=== PATIENT | female | born 1980 | race Caucasian/White ===

== ENCOUNTER 2018-06-23 14:06 | Emergency (ER) | payer BC ==
[2018-06-23 14:24] VITALS: BP 133/77
[2018-06-23] MEDS ORDERED: Sodium Chloride 0.9% 10 ML Syringe FLUSH PRN (14:44)
--- NOTE | 2018-06-23 14:47 | EDM.PDOC ---
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 45 minutes prior to admission to the ED. Went to the bathroom and had a approximately 5 cm x 5 cm dark circular pattern blood spot to her underwear. She placed a bad into her underwear and came to the E.D. for further evaluation. She does not know if it is saturated or not. States the bleeding is abnormal for her. There is no discomfort noted. Denies any activities prior to onset that may have contributed to bleeding. Last menstrual cycle was April 16. history 3 para 2. She's had 2 C-sections. Appendix has been removed as well. She is currently taking vitamins. Denies any smoking history, alcohol use, and or recreational drug use. She does not recall her blood type. Denies any fever/chills, nausea vomiting, abdominal pain, dysuria, bleeding disorder, or any additional complaints. 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: , Other (See Below) Other E LEARNING DEVELOPER History: 2 c sections - Infectious Disease History Infectious Disease History: Reports: None - Past Surgical History GI Surgical History: Reports: Appendectomy Female Surgical History: Reports: Section Social & Family History - Family History Family Medical History: Noncontributory - Tobacco Use Smoking Status *Q: Never Smoker - Caffeine Use Caffeine Use: Reports: Soda - Recreational Drug Use Recreational Drug Use: No ED ROS GENERAL - Review of Systems Review Of Systems: See Below Constitutional: Reports: No Symptoms Respiratory: Reports: No Symptoms Cardiovascular: Reports: No Symptoms GI/Abdominal: Reports: No Symptoms : Reports: Discharge (blood). Denies: Dysuria, Flank Pain, Frequency, Hematuria, Urgency ED EXAM - Physical Exam Exam: See Below Exam Limited By: No Limitations General Appearance: Alert, WD/WN, No Apparent Distress Ears: Hearing Grossly Normal Nose: Normal Inspection Throat/Mouth: Normal Voice, No Airway Compromise Neck: Normal Inspection, Supple Respiratory/Chest: No Respiratory Distress, Lungs Clear, Normal Breath Sounds, No Accessory Muscle Use, Chest Non-Tender Cardiovascular: Normal Peripheral Pulses, Regular Rate, Rhythm, No Murmur GI/Abdominal Exam: Normal Bowel Sounds, Soft, Non-Tender, No Organomegaly, No Distention (Female) Exam: Other (Deferred) Back Exam: Normal Inspection. No: CVA Tenderness (L), CVA Tenderness (R) Extremities: Normal Inspection Neurological: Alert, Oriented, CN II-XII Intact Psychiatric: Normal Affect, Normal Mood Skin Exam: Warm, Dry, Intact, Normal Color Course - Vital Signs Last Recorded V/S: Last Vital Signs Temp 98.9 F 06/23/18 14:23 Pulse 82 06/23/18 14:23 Resp 20 06/23/18 14:23 BP 133/77 06/23/18 14:23 Pulse Ox 99 06/23/18 14:23 - Orders/Labs/Meds Orders: Active Orders 24 hr Category Date Time Status Peripheral IV Care [RC] . DIRECTED Care 06/23/18 14:44 Active CULTURE URINE [RM] Stat Lab 06/23/18 15:01 Received Peripheral IV Insertion Adult [OM.PC] Routine Oth 06/23/18 14:44 Ordered Labs: Laboratory Tests 06/23/18 06/23/18 06/23/18 Range/Units 14:55 14:55 14:55 WBC 7.63 (3.98-10.04) K/mm3 RBC 4.46 (3.98-5.22) M/mm3 Hgb 13.2 (11.2-15.7) gm/L Hct 39.6 (34.1-44.9) % MCV 88.8 (79.4-94.8) fl MCH 29.6 (25.6-32.2) pg MCHC 33.3 (32.2-35.5) g/dl RDW Std Deviation 42.4 (36.4-46.3) fL Plt Count 286 (182-369) K/mm3 MPV 9.5 (9.4-12.3) fl Neutrophils % (Manual) 66 H (40-60) % Band Neutrophils % 0 (0-10) % Lymphocytes % (Manual) 27 (20-40) % Atypical Lymphs % 0 % Monocytes % (Manual) 4 (2-10) % Eosinophils % (Manual) 3 (0.7-5.8) % Basophils % (Manual) 0 L (0.1-1.2) Platelet Estimate Adequate Plt Morphology Comment Normal RBC Morph Comment Normal PT 9.9 (9.5-12.1) SECONDS INR < 0.93 APTT 29 (24-31) SECONDS Sodium 139 (136-145) mEq/L Potassium 3.7 (3.5-5.1) mEq/L Chloride 104 (98-107) mEq/L Carbon Dioxide 25 (21-32) mEq/L Anion Gap 13.7 (5-15) BUN 10 (7-18) mg/dL Creatinine 0.8 (0.55-1.02) mg/dL Est Cr Clr Drug Dosing 75.41 mL/min Estimated GFR (MDRD) > 60 (>60) mL/min BUN/Creatinine Ratio 12.5 L (14-18) Glucose 102 (74-106) mg/dL Calcium 9.6 (8.5-10.1) mg/dL Total Bilirubin 0.2 (0.2-1.0) mg/dL AST 19 (15-37) U/L ALT 28 (14-59) U/L Alkaline Phosphatase 92 (46-116) U/L Total Protein 7.8 (6.4-8.2) g/dl Albumin 3.7 (3.4-5.0) g/dl Globulin 4.1 gm/dL Albumin/Globulin Ratio 0.9 L (1-2) HCG, Quant 4152.0 mIU/mL Urine Color (Yellow) Urine Appearance (Clear) Urine pH (5.0-8.0) Ur Specific [place] (1.005-1.030) Urine Protein (Negative) Urine Glucose (UA) (Negative) Urine Ketones (Negative) Urine Occult Blood (Negative) Urine Nitrite (Negative) Urine Bilirubin (Negative) Urine Urobilinogen (0.2-1.0) Ur Leukocyte Esterase (Negative) Urine RBC (0-5) /hpf Urine WBC (0-5) /hpf Ur Epithelial Cells (0-5) /hpf Urine Bacteria (FEW) /hpf Urine Mucus (FEW) /hpf Blood Type Gel Antibody Screen 06/23/18 06/23/18 Range/Units 14:55 15:01 WBC (3.98-10.04) K/mm3 RBC (3.98-5.22) M/mm3 Hgb (11.2-15.7) gm/L Hct (34.1-44.9) % MCV (79.4-94.8) fl MCH (25.6-32.2) pg MCHC (32.2-35.5) g/dl RDW Std Deviation (36.4-46.3) fL Plt Count (182-369) K/mm3 MPV (9.4-12.3) fl Neutrophils % (Manual) (40-60) % Band Neutrophils % (0-10) % Lymphocytes % (Manual) (20-40) % Atypical Lymphs % % Monocytes % (Manual) (2-10) % Eosinophils % (Manual) (0.7-5.8) % Basophils % (Manual) (0.1-1.2) Platelet Estimate Plt Morphology Comment RBC Morph Comment PT (9.5-12.1) SECONDS INR APTT (24-31) SECONDS Sodium (136-145) mEq/L Potassium (3.5-5.1) mEq/L Chloride (98-107) mEq/L Carbon Dioxide (21-32) mEq/L Anion Gap (5-15) BUN (7-18) mg/dL Creatinine (0.55-1.02) mg/dL Est Cr Clr Drug Dosing mL/min Estimated GFR (MDRD) (>60) mL/min BUN/Creatinine Ratio (14-18) Glucose (74-106) mg/dL Calcium (8.5-10.1) mg/dL Total Bilirubin (0.2-1.0) mg/dL AST (15-37) U/L ALT (14-59) U/L Alkaline Phosphatase (46-116) U/L Total Protein (6.4-8.2) g/dl Albumin (3.4-5.0) g/dl Globulin gm/dL Albumin/Globulin Ratio (1-2) HCG, Quant mIU/mL Urine Color Yellow (Yellow) Urine Appearance Clear (Clear) Urine pH 7.0 (5.0-8.0) Ur Specific [place] 1.015 (1.005-1.030) Urine Protein Negative (Negative) Urine Glucose (UA) Negative (Negative) Urine Ketones Negative (Negative) Urine Occult Blood 3+ H (Negative) Urine Nitrite Negative (Negative) Urine Bilirubin Negative (Negative) Urine Urobilinogen 0.2 (0.2-1.0) Ur Leukocyte Esterase Trace H (Negative) Urine RBC 0-5 (0-5) /hpf Urine WBC 5-10 H (0-5) /hpf Ur Epithelial Cells 5-10 H (0-5) /hpf Urine Bacteria Rare (FEW) /hpf Urine Mucus Not seen (FEW) /hpf Blood Type O POSITIVE Gel Antibody Screen Negative Meds: Medications Discontinued Medications Generic Name Dose Route Start Last Admin Trade Name Freq PRN Reason Stop Dose Admin Acetaminophen 975 mg 06/23/18 16:28 06/23/18 16:33 Tylenol PO 06/23/18 16:29 975 mg NOW ONE Administration Nitrofurantoin Macrocrystals 100 mg 06/23/18 16:54 06/23/18 17:05 Macrobid PO 06/23/18 16:55 100 mg ONETIME ONE Administration Sodium Chloride 10 ml 06/23/18 14:44 06/23/18 15:01 Saline Flush FLUSH 10 ml ASDIRECTED PRN Administration Keep Vein Open - Re-Assessments/Exams Free Text/Narrative Re-Assessment/Exam: Peripheral IV started. Initial labs and studies include: CBC, chem 14, hCG quantitative, coag studies, type and screen, UA, and OB transvaginal ultrasound. Per patient with providing a UA sample there was only a small 2 cm x 2 cm spot on the pad of dark blood. No clots or tissue present. She has no cramping. Labs reviewed: CBC and CMP was essentially normal. HCG quantitative was 4152. UA revealed 3+ occult blood, trace leukocyte Estrace, urine wbc's 5-10, urine epithelial cells 5-10. Appears to be contaminated. With patient being I have elected to start the patient on Macrobid 100 mg twice a day for 5 days. Urine culture has been obtained. Ultrasound impression: Single intrauterine gestational sac containing pole. No heart activity seen at this time. This may related to early gestational age although follow-up recommended in 11 days to confirm normal developing . 2 vague hyperechoic areas within the uterus of uncertain etiology, likely incidental. All labs and ultrasound results discussed with the patient. She has no complaints at this time. I am awaiting for Rh type prior to discharge. 06/23/18 17:13 I did call the lab and asked about blood type. Patient's O+. Patient will be discharged home. Discharge instructions as documented. The patient remained hemodynamically stable while under my care in the E.D. I discussed the concerning symptoms for which to returnto the E.D. with the patient/family. The patient/family verbalized understanding. All questions were answered. Departure - Departure Time of Disposition: 17:14 Disposition: Home, Self-Care 01 Condition: Good Clinical Impression: Vaginal bleeding in patient at less than 20 weeks gestation UTI (urinary tract infection) Qualifiers: Urinary tract infection type: site unspecified Hematuria presence: with hematuria Qualified Code(s): N39.0 - Urinary tract infection, site not specified - Discharge Information Prescriptions: Nitrofurantoin Monohyd/M-Cryst [Macrobid 100 mg Capsule] 100 mg PO BID #10 capsule Instructions: Vaginal Bleeding During , First Trimester, Urinary Tract Infection, Adult, [id number] Referrals: Adrienne Izaguirre MD [Primary Care Provider] - Forms: ED Department Discharge Additional Instructions: As discussed ultrasound revealed single intrauterine gestational sac. No heart activity is seen at this time. They recommended follow-up exam in 11 days to confirm normal developing . Keep appointment with Dr. Izaguirre as scheduled for July 05. In addition UA revealed you have a UTI. Treatment will be Macrobid 1 tab twice a day for 5 days. Please follow up with PCP to have urine checked 2 days after completion of antibiotics to assure resolution. Push the fluids. Utilize Tylenol as needed for any discomfort. Refrain from heavy lifting, exertional activities, and sexual intercourse. Please return back to the ED if you should develop any new or worsening symptoms. Blood type O+. - My Orders Last 24 Hours: My Active Orders 06/23/18 14:44 Peripheral IV Care [RC] . DIRECTED Peripheral IV Insertion Adult [OM.PC] Routine 06/23/18 15:01 CULTURE URINE [RM] Stat - Assessment/Plan Last 24 Hours: My Active Orders 06/23/18 14:44 Peripheral IV Care [RC] . DIRECTED Peripheral IV Insertion Adult [OM.PC] Routine 06/23/18 15:01 CULTURE URINE [RM] Stat
[2018-06-23] MEDS ORDERED: Acetaminophen 325 MG Tab PO ONE (16:28)
--- NOTE | 2018-06-23 16:34 | US ---
First trimester obstetrical ultrasound: Multiple real-time images were obtained transvaginally. Comparison: No previous study for current . Dates: Current ultrasound: [facility] 02/15/19, gestational age 6 weeks 1 day Single intrauterine gestation is seen. Amniotic fluid volume is normal. pole is seen. No subchorionic hemorrhage is identified. Vague hyperechoic areas are seen within the uterus of uncertain etiology at this time. Maternal right ovary is seen and appears unremarkable. Maternal left ovary not visualized. Measurements: [place]-rump length: 0.42 cm - 6 weeks 1 day No heart activity is seen. Impression: 1. Single intrauterine gestational sac containing pole. No heart activity is seen at this time. This may relate to early gestational age although follow-up recommended in 11 days to confirm normal developing . 2. 2 vague hyperechoic areas within the uterus of uncertain etiology, likely incidental. Diagnostic code #3
[2018-06-23] MEDS ORDERED: Nitrofurantoin Monohydrate/Macrocrystalline 100 MG Cap PO ONE (16:54)
== END 2018-06-23 17:30 | disposition home or self-care (01) ==
LOC: JD.ED 14:06
DX: O09.521 Supervision of elderly multigravida, first trimester (principal); O20.9 Hemorrhage in early pregnancy, unspecified; O23.41 Unspecified infection of urinary tract in pregnancy, first trimester; Z3A.10 10 weeks gestation of pregnancy; Z79.899 Other long term (current) drug therapy
CPT/HCPCS: 36415; 76817; 80053; 81001; 84702; 85007; 85027; 85610; 85730; 86850; 86900; 86901; 87086; 99284; A9270; J7050

== ENCOUNTER 2018-06-26 09:29 | Emergency (ER) | payer BC ==
[2018-06-26 09:39] VITALS: BP 134/81
--- NOTE | 2018-06-26 11:36 | US ---
First trimester obstetrical ultrasound: Multiple real-time images were obtained transvaginally. Comparison: Previous obstetrical ultrasound of 06/23/18. No intrauterine gestational sac is seen. Equivocal fibroid within the lower uterine segment measuring 2.9 cm. Left ovary not visualized. Right ovary is within normal limits. Small amount of free fluid is seen within the cul-de-sac believed to be incidental. No endometrial thickening is seen. Impression: 1. No intrauterine gestational sac. Equivocal uterine fibroid as noted above. 2. Small amount of free fluid believed to be incidental. Diagnostic code #2
--- NOTE | 2018-06-26 12:20 | EDM.PDOC ---
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 She is about 10 weeks gestation with a LNMP of April 12. She was seen here on Monday by Jm Colby for spotting and the US showed a single intrauterine gestational sack containing pole. No heart activity is seen at this time. This may relate to early gestational age although follow-up recommended in 11 days to confirm normal developing . Her quant HCG was 4152. She went home and today she got up and had a gush of blood. She has some cramping. She has no fever, chills, cough, chest pain or sortness of breath. She was started on macrobid for a UTI but the culture was contaminated. Onset: Gradual Duration: Day(s): Quality: Reports: Other (cramping) Severity: Mild Improves with: Reports: None Worsens with: Reports: None Associated Symptoms: Reports: No Other Symptoms Abdominal Pain Score (Numeric/FACES): 2 - Related Data Allergies Allergy/AdvReac Type Severity Reaction Status Date / Time No Known Allergies Allergy Verified 06/26/18 09:39 Home Meds: Home Meds Nitrofurantoin Monohyd/M-Cryst [Macrobid 100 mg Capsule] 100 mg PO BID #10 capsule 06/23/18 [Rx] PNV95/Ferrous Fumarate/FA [ Tablet] 1 tab PO DAILY 06/23/18 [History] Past Medical History - Past Health History Medical/Surgical History: Denies Medical/Surgical History 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 PRESSER History: Reports: , Other (See Below) Other GARMENT PRESSER History: 2 c sections - Infectious Disease History Infectious Disease History: Reports: None - Past Surgical History GI Surgical History: Reports: Appendectomy Female Surgical History: Reports: Section Social & Family History - Family History Family Medical History: Noncontributory - Caffeine Use Caffeine Use: Reports: Soda ED ROS GENERAL - Review of Systems Review Of Systems: See Below Constitutional: Reports: No Symptoms HEENT: Reports: No Symptoms Respiratory: Reports: No Symptoms Cardiovascular: Reports: No Symptoms Endocrine: Reports: No Symptoms GI/Abdominal: Reports: No Symptoms : Reports: Other (Vaginal bleeding and cramping) Musculoskeletal: Reports: No Symptoms ED EXAM - Physical Exam Exam: See Below Exam Limited By: No Limitations General Appearance: Alert, No Apparent Distress Ears: Normal External Exam Nose: Normal Inspection Head: Atraumatic, Normocephalic Neck: Normal Inspection Respiratory/Chest: No Respiratory Distress, Lungs Clear, Normal Breath Sounds Cardiovascular: Regular Rate, Rhythm, No Edema, No Murmur GI/Abdominal Exam: Soft, Non-Tender, No Organomegaly, No Mass (Female) Exam: Vaginal Bleeding (moderate bleeding with some clots) Extremities: Normal Inspection Neurological: Alert, Oriented, No Motor/Sensory Deficits Course - Vital Signs Last Recorded V/S: Last Vital Signs Temp 99.8 F 06/26/18 09:36 Pulse 88 06/26/18 09:36 Resp 16 06/26/18 09:36 BP 134/81 06/26/18 09:36 Pulse Ox 94 L 06/26/18 09:36 - Orders/Labs/Meds Orders: Active Orders 24 hr Category Date Time Status Pelvic Exam, Set Up [RC] ASDIRECTED Care 06/26/18 10:05 Active Labs: Laboratory Tests 06/26/18 06/26/18 Range/Units 10:15 10:15 WBC 9.15 (3.98-10.04) K/mm3 RBC 4.38 (3.98-5.22) M/mm3 Hgb 12.9 (11.2-15.7) gm/L Hct 38.9 (34.1-44.9) % MCV 88.8 (79.4-94.8) fl MCH 29.5 (25.6-32.2) pg MCHC 33.2 (32.2-35.5) g/dl RDW Std Deviation 41.5 (36.4-46.3) fL Plt Count 257 (182-369) K/mm3 MPV 9.0 L (9.4-12.3) fl Neut % (Auto) 76.9 H (34.0-71.1) % Lymph % (Auto) 15.5 L (19.3-51.7) % [place] % (Auto) 5.7 (4.7-12.5) % Eos % (Auto) 1.4 (0.7-5.8) Baso % (Auto) 0.4 (0.1-1.2) % Neut # (Auto) 7.03 H (1.56-6.13) K/mm3 Lymph # (Auto) 1.42 (1.18-3.74) K/mm3 [place] # (Auto) 0.52 H (0.24-0.36) K/mm3 Eos # (Auto) 0.13 (0.04-0.36) K/mm3 Baso # (Auto) 0.04 (0.01-0.08) K/mm3 HCG, Quant 2365.0 mIU/mL - Re-Assessments/Exams Free Text/Narrative Re-Assessment/Exam: 06/26/18 12:18 I saw the patient with Cornelia Romero. Her CBC looked good. Her HCG has gone down from 4152 to 2365. Her blood type is O+. Her US shows no intrauterine gestational sac. Equivocal uterine fibroid as noted above. Small amount of free fluid believed to be incidental. It appears she had a spontaneous . I called Dr Izaguirre and she will be out of the office the next few days. She will be here next week and the patient has an appointment with her. She is to return if she has no other problems. Departure - Departure Time of Disposition: 12:30 Disposition: Home, Self-Care 01 Condition: Good Clinical Impression: Complete - Discharge Information *PRESCRIPTION DRUG MONITORING PROGRAM REVIEWED*: No *COPY OF PRESCRIPTION DRUG MONITORING REPORT IN PATIENT [place]: No Referrals: Adrienne Izaguirre MD [Primary Care Provider] - 1 Week Forms: ED Department Discharge Additional Instructions: Go home and rest. Please return if you are worse such as more bleeding, pain, fever or chills. You should not be soaking more then 1 pad per hour. Follow up with Dr Izaguirre next . - My Orders Last 24 Hours: My Active Orders 06/26/18 10:05 Pelvic Exam, Set Up [RC] ASDIRECTED - Assessment/Plan Last 24 Hours: My Active Orders 06/26/18 10:05 Pelvic Exam, Set Up [RC] ASDIRECTED
== END 2018-06-26 12:49 | disposition home or self-care (01) ==
LOC: JD.ED 09:29
DX: O03.9 Complete or unspecified spontaneous abortion without complication (principal)
CPT/HCPCS: 36415; 76817; 76817-26; 84702; 85025; 99283; 99284-25

== ENCOUNTER 2020-11-21 19:36 | Observation (INO) | payer BC ==
[2020-11-21] MEDS ORDERED: Ondansetron 4 MG/2 ML SDV IVPUSH ONE (20:04)
[2020-11-21] MEDS ORDERED: Sodium Chloride 0.9% 1,000 ML IV SCH (20:15)
[2020-11-21] MEDS ORDERED: HYDROmorphone 1 MG/ML Syringe IVPUSH ONE (20:31)
--- NOTE | 2020-11-21 20:33 | EDM.PDOC ---
ED HPI GENERAL MEDICAL PROBLEM - General Chief Complaint: Abdominal Pain Stated Complaint: VOMITING/LOWER BACK Time Seen by Provider: 11/21/20 20:21 Source of Information: Reports: Patient, RN Notes Reviewed History Limitations: Reports: No Limitations - History of Present Illness INITIAL COMMENTS - FREE TEXT/NARRATIVE: Patient is a 40-year-old female who presents to the ED for evaluation of her abdominal pain. The patient's relates that they ate some seafood which consisted of Supa crab, coleslaw and biscuits at around 1 PM today, and at around 6 PM, patient developed stomach pain that involves the entire abdomen, she has had nausea and vomiting about 6 emesis in the past hour. She is complaining of all over generalized abdominal pain, but is exquisitely tender over the epigastrium and right upper quadrant. Patient notes is very painful to find any sort of position of comfort. Pain is been constant and has not waxed or waned. She is not having any urinary discomfort or frequency or urgency. She has not had any fevers per se. But she states she feels hot. The patient notes she has had an appendectomy, but still retains her gallbladder. Abdomen Pain Score (Numeric/FACES): 10 Back Pain Score (Numeric/FACES): 6 - Related Data Allergies Allergy/AdvReac Type Severity Reaction Status Date / Time No Known Allergies Allergy Verified 06/26/18 09:39 Home Meds: Home Meds . 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 ED EXAM, GI/ABD - Physical Exam Exam: See Below Exam Limited By: No Limitations General Appearance: Alert, WD/WN, No Apparent Distress Respiratory/Chest: No Respiratory Distress, Lungs Clear, Normal Breath Sounds, No Accessory Muscle Use, Chest Non-Tender Cardiovascular: Normal Peripheral Pulses, Regular Rate, Rhythm, No Edema GI/Abdominal Exam: Normal Bowel Sounds, Soft, No Distention, No Mass, Tender (epigastrium and into RUQ) Extremities: Normal Inspection, Normal Capillary Refill Neurological: Alert, Oriented, Normal Cognition, No Motor/Sensory Deficits Psychiatric: Anxious Skin Exam: Warm, Dry, Intact, Normal Color, No Rash Course - Vital Signs Last Recorded V/S: Last Vital Signs Temp 96.9 F 11/21/20 19:59 Pulse 80 11/21/20 19:59 Resp 20 11/21/20 19:59 BP 140/93 H 11/21/20 19:59 Pulse Ox 100 11/21/20 19:59 - Orders/Labs/Meds Orders: Active Orders 24 hr Category Date Time Status Nothing per Oral After Midnight Diet [DIET] Diet 11/22/20 Breakfast Ordered Abdomen Pelvis w Cont [CT] Stat Exams 11/21/20 20:27 Ordered COVID-19/FLU A+B [MOLEC] Stat Lab 11/21/20 23:17 Ordered Ertapenem [INVanz] 1 gm Med 11/21/20 23:17 Ordered Sodium Chloride 0.9% [Normal Saline] 50 ml IV ONETIME Sodium Chloride 0.9% [Normal Saline] 1,000 ml Med 11/21/20 20:15 Active IV ASDIRECTED Medication Orders Sodium Chloride (Normal Saline) 1,000 mls @ 150 mls/hr IV ASDIRECTED SARAH Last Admin: 11/21/20 20:21 Dose: 150 mls/hr Documented by: [id number] Ertapenem 1 gm/ Sodium (Chloride) 50 mls @ 100 mls/hr IV ONETIME ONE Stop: 11/21/20 23:46 Labs: Laboratory Tests 11/21/20 11/21/20 11/21/20 Range/Units 19:55 19:55 20:40 WBC 11.61 H (3.98-10.04) K/mm3 RBC 4.37 (3.98-5.22) M/mm3 Hgb 12.5 (11.2-15.7) gm/dl Hct 39.2 (34.1-44.9) % MCV 89.7 (79.4-94.8) fl MCH 28.6 (25.6-32.2) pg MCHC 31.9 L (32.2-35.5) g/dl RDW Std Deviation 44.7 (36.4-46.3) fL Plt Count 265 (182-369) K/mm3 MPV 9.2 L (9.4-12.3) fl Neut % (Auto) 76.6 H (34.0-71.1) % Lymph % (Auto) 15.7 L (19.3-51.7) % [place] % (Auto) 4.7 (4.7-12.5) % Eos % (Auto) 2.5 (0.7-5.8) Baso % (Auto) 0.3 (0.1-1.2) % Neut # (Auto) 8.90 H (1.56-6.13) K/mm3 Lymph # (Auto) 1.82 (1.18-3.74) K/mm3 [place] # (Auto) 0.55 H (0.24-0.36) K/mm3 Eos # (Auto) 0.29 (0.04-0.36) K/mm3 Baso # (Auto) 0.03 (0.01-0.08) K/mm3 Manual Slide Review Normal smear Sodium (136-145) mEq/L Potassium (3.5-5.1) mEq/L Chloride (98-107) mEq/L Carbon Dioxide (21-32) mEq/L Anion Gap (5-15) BUN (7-18) mg/dL Creatinine (0.55-1.02) mg/dL Est Cr Clr Drug Dosing mL/min Estimated GFR (MDRD) (>60) mL/min BUN/Creatinine Ratio (14-18) Glucose (74-106) mg/dL Calcium (8.5-10.1) mg/dL Total Bilirubin (0.2-1.0) mg/dL GGT (5-55) U/L AST (15-37) U/L ALT (14-59) U/L Alkaline Phosphatase (46-116) U/L C-Reactive Protein (<1.0) mg/dL Total Protein (6.4-8.2) g/dl Albumin (3.4-5.0) g/dl Globulin gm/dL Albumin/Globulin Ratio (1-2) Lipase (73-393) U/L Urine Color Yellow (Yellow) Urine Appearance Clear (Clear) Urine pH 6.0 (5.0-8.0) Ur Specific [place] > or = 1.030 (1.005-1.030) Urine Protein 1+ H (Negative) Urine Glucose (UA) Negative (Negative) Urine Ketones Negative (Negative) Urine Occult Blood 2+ H (Negative) Urine Nitrite Negative (Negative) Urine Bilirubin Negative (Negative) Urine Urobilinogen 0.2 (0.2-1.0) Ur Leukocyte Esterase Negative (Negative) Urine RBC 0-5 (0-5) /hpf Urine WBC 0-5 (0-5) /hpf Ur Squamous Epith Cells 5-10 H (0-5) /hpf Urine Bacteria Few (FEW) /hpf Urine Mucus Moderate H (FEW) /hpf Urine HCG, Qual Negative (NEGATIVE) 11/21/20 11/21/20 Range/Units 20:40 20:40 WBC (3.98-10.04) K/mm3 RBC (3.98-5.22) M/mm3 Hgb (11.2-15.7) gm/dl Hct (34.1-44.9) % MCV (79.4-94.8) fl MCH (25.6-32.2) pg MCHC (32.2-35.5) g/dl RDW Std Deviation (36.4-46.3) fL Plt Count (182-369) K/mm3 MPV (9.4-12.3) fl Neut % (Auto) (34.0-71.1) % Lymph % (Auto) (19.3-51.7) % [place] % (Auto) (4.7-12.5) % Eos % (Auto) (0.7-5.8) Baso % (Auto) (0.1-1.2) % Neut # (Auto) (1.56-6.13) K/mm3 Lymph # (Auto) (1.18-3.74) K/mm3 [place] # (Auto) (0.24-0.36) K/mm3 Eos # (Auto) (0.04-0.36) K/mm3 Baso # (Auto) (0.01-0.08) K/mm3 Manual Slide Review Sodium 142 (136-145) mEq/L Potassium 3.9 (3.5-5.1) mEq/L Chloride 105 (98-107) mEq/L Carbon Dioxide 25 (21-32) mEq/L Anion Gap 15.9 H (5-15) BUN 14 (7-18) mg/dL Creatinine 0.9 (0.55-1.02) mg/dL Est Cr Clr Drug Dosing 65.06 mL/min Estimated GFR (MDRD) > 60 (>60) mL/min BUN/Creatinine Ratio 15.6 (14-18) Glucose 109 H (74-106) mg/dL Calcium 8.9 (8.5-10.1) mg/dL Total Bilirubin 0.2 (0.2-1.0) mg/dL GGT 32 (5-55) U/L AST 15 (15-37) U/L ALT 27 (14-59) U/L Alkaline Phosphatase 91 (46-116) U/L C-Reactive Protein 1.4 H* (<1.0) mg/dL Total Protein 7.6 (6.4-8.2) g/dl Albumin 3.6 (3.4-5.0) g/dl Globulin 4.0 gm/dL Albumin/Globulin Ratio 0.9 L (1-2) Lipase 143 (73-393) U/L Urine Color (Yellow) Urine Appearance (Clear) Urine pH (5.0-8.0) Ur Specific [place] (1.005-1.030) Urine Protein (Negative) Urine Glucose (UA) (Negative) Urine Ketones (Negative) Urine Occult Blood (Negative) Urine Nitrite (Negative) Urine Bilirubin (Negative) Urine Urobilinogen (0.2-1.0) Ur Leukocyte Esterase (Negative) Urine RBC (0-5) /hpf Urine WBC (0-5) /hpf Ur Squamous Epith Cells (0-5) /hpf Urine Bacteria (FEW) /hpf Urine Mucus (FEW) /hpf Urine HCG, Qual (NEGATIVE) Meds: Medications Generic Name Dose Route Start Last Admin Trade Name Freq PRN Reason Stop Dose Admin Sodium Chloride 1,000 mls @ 150 mls/hr 11/21/20 20:15 11/21/20 20:21 Normal Saline IV 150 mls/hr ASDIRECTED SARAH Administration Ertapenem 1 gm/ Sodium 50 mls @ 100 mls/hr 11/21/20 23:17 Chloride IV 11/21/20 23:46 ONETIME ONE Discontinued Medications Generic Name Dose Route Start Last Admin Trade Name Freq PRN Reason Stop Dose Admin Fentanyl 50 mcg 11/21/20 21:22 11/21/20 21:50 Sublimaze IVPUSH 11/21/20 21:23 50 mcg ONETIME ONE Administration Fentanyl 50 mcg 11/21/20 22:07 11/21/20 22:41 Sublimaze IVPUSH 11/21/20 22:08 50 mcg ONETIME ONE Administration Hydromorphone HCl 1 mg 11/21/20 20:31 11/21/20 20:35 Dilaudid IVPUSH 11/21/20 20:32 1 mg ONETIME ONE Administration Ondansetron HCl 4 mg 11/21/20 20:04 11/21/20 20:21 Zofran IVPUSH 11/21/20 20:05 4 mg ONETIME ONE Administration - Re-Assessments/Exams Free Text/Narrative Re-Assessment/Exam: 11/21/20 20:33 Patient presents to the ED for evaluation of her epigastric/right upper quadrant pain, hard to delineate if this is more gallbladder etiology or possible food poisoning, patient did become violently ill some seafood, but her is not sick. Nonetheless we will get IV placed, give her some pain meds, nausea meds get some labs and an abdomen pelvis CT with IV and oral contrast. 11/21/20 23:21 The patient's labs demonstrated a elevated white count of 11.61, metabolic panel essentially unremarkable, CRP is mildly elevated at 1.4, the patient CT demonstrates gallstones within the gallbladder lumen without evidence of acute cholecystitis mild gallbladder wall thickening, consider ultrasound if there is clinical concern for acute cholecystitis. Due to the patient's exquisite right upper quadrant tenderness, I would say that she does have cholecystitis. I did contact Dr. [place] our surgeon on-call, and he also agrees, patient will be given 1 g of Invanz, and be put into the hospital for observation overnight, and he will try to evaluate her in the morning and likely take her to surgery then. Departure - Departure Time of Disposition: 23:22 Disposition: Refer to Observation Condition: Good Clinical Impression: Cholecystitis - Discharge Information Referrals: PCP,None [Primary Care Provider] - Forms: ED Department Discharge Sepsis Event Note (ED) - Evaluation Sepsis Screening Result: No Definite Risk - Focused Exam Vital Signs: Vital Signs Temp Pulse Resp BP Pulse Ox 11/21/20 19:59 96.9 F 80 20 140/93 H 100 - My Orders Last 24 Hours: My Active Orders 11/21/20 20:15 Sodium Chloride 0.9% [Normal Saline] 1,000 ml IV ASDIRECTED 11/21/20 20:27 Abdomen Pelvis w Cont [CT] Stat 11/21/20 23:17 COVID-19/FLU A+B [MOLEC] Stat Ertapenem [INVanz] 1 gm Sodium Chloride 0.9% [Normal Saline] 50 ml IV ONETIME 11/22/20 Breakfast Nothing per Oral After Midnight Diet [DIET] - Assessment/Plan Last 24 Hours: My Active Orders 11/21/20 20:15 Sodium Chloride 0.9% [Normal Saline] 1,000 ml IV ASDIRECTED 11/21/20 20:27 Abdomen Pelvis w Cont [CT] Stat 11/21/20 23:17 COVID-19/FLU A+B [MOLEC] Stat Ertapenem [INVanz] 1 gm Sodium Chloride 0.9% [Normal Saline] 50 ml IV ONETIME 11/22/20 Breakfast Nothing per Oral After Midnight Diet [DIET]
[2020-11-21] MEDS ORDERED: fentaNYL 100 MCG/2 ML SDV IVPUSH ONE ×2 (21:22→22:07)
[2020-11-21] MEDS ORDERED: Metoclopramide 10 MG/2 ML SDV IVPUSH PRN (23:00)
[2020-11-21] MEDS ORDERED: Ondansetron 4 MG/2 ML SDV IVPUSH PRN (23:00)
[2020-11-21] MEDS ORDERED: Ertapenem 1 GM in Sodium Chloride 0.9% 50 ML IV ONE (23:17)
[2020-11-22 00:51] LABS: CORONAVIRUS COVID-19 NAA NEGATIVE (NEGATIVE)
[2020-11-22] MEDS: Lactated Ringers 1,000 ML IV SCH ×2 (02:00→12:02)
[2020-11-22] MEDS: fentaNYL 100 MCG/2 ML SDV IVPUSH PRN ×2 (03:05→12:39)
[2020-11-22] MEDS ORDERED: Rocuronium 50 MG/5 ML Vial ONE ×2 (07:09→08:36)
[2020-11-22] MEDS ORDERED: Ondansetron 4 MG/2 ML SDV ONE (07:09)
[2020-11-22] MEDS ORDERED: Propofol 200 MG/20 ML SDV ONE (07:09)
[2020-11-22] MEDS ORDERED: fentaNYL 250 MCG/5 ML SDV ONE (07:10)
[2020-11-22] MEDS ORDERED: Lidocaine 1% 4 ML ONE (07:10)
[2020-11-22] MEDS ORDERED: Ketorolac 30 MG/ML SDV ONE (07:10)
[2020-11-22] MEDS ORDERED: Midazolam 1 MG/ML 2 ML SDV ONE (07:10)
[2020-11-22] MEDS ORDERED: Bupivacaine 0.5%/EPINEPHrine 1:200,000 50 ML MDV ONE (07:15)
--- NOTE | 2020-11-22 07:52 | PCM.HP.2 ---
H&P History of Present Illness - General Date of Service: 11/22/20 Admit Problem/Dx: Admission Diagnosis/Problem Admission Diagnosis/Problem Cholecystitis Source of Information: Patient History Limitations: Reports: No Limitations - History of Present Illness Initial Comments - Free Text/Narative: Patient comes in with abdominal pain, nausea and vomiting. pain started after eating at a birthday constitution party yesterday afternoon. Initially she was mostly bloated and felt unwell. She left the constitution party and went home and around 6 pm she started vomiting. Pain was in the right abdomen. She had emesisi x 6 and came to the ED. In the ED WBC was 11, she was very tender to palpation on RUQ. Ct showed cholelithiasis and gall bladder wall thickening. LFTs were normal. I was asked to see her. During my evaluation, she had received morphine so her pain was much better. She reported that she has had the pain in waxing and waning fashion for the past 2 weeks. No cardiopulm issues. Non-smoker. Onset of Symptoms: Reports: Sudden Duration of Symptoms: Reports: Hour(s): (10), Getting Worse Location: Reports: Abdomen (RUQ) Quality: Reports: Sharp Improves with: Reports: Immobilization Worsens with: Reports: Movement Associated Symptoms: Reports: Nausea/Vomiting Abdomen Pain Score (Numeric/FACES): 10 Back Pain Score (Numeric/FACES): 6 R Flank Pain Score (Numeric/FACES): 4 - Related Data Allergies/Adverse Reactions: Allergies Allergy/AdvReac Type Severity Reaction Status Date / Time No Known Allergies Allergy Verified 11/22/20 00:03 Home Medications: Home Meds Multivitamin 1 tab PO DAILY 11/22/20 [History] Past Medical History Cardiovascular History: Reports: None Gastrointestinal History: Reports: Other (See Below) Genitourinary History: Reports: Other (See Below) 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 states no additional meds needed. - Past Surgical History Other Cardiovascular Surgeries/Procedures: hx preeclampsia with last GI Surgical History: Reports: Appendectomy Female Surgical History: Reports: Section Social & Family History - Family History Family Medical History: No Pertinent Family History - Tobacco Use Tobacco Use Status *Q: Never Tobacco User Second Hand Smoke Exposure: No - Caffeine Use Caffeine Use: Reports: Soda - Recreational Drug Use Recreational Drug Use: No H&P Review of Systems - Review of Systems: Review Of Systems: See Below General: Reports: No Symptoms HEENT: Reports: No Symptoms Pulmonary: Reports: No Symptoms Cardiovascular: Reports: No Symptoms Gastrointestinal: Reports: Abdominal Pain Genitourinary: Reports: No Symptoms Musculoskeletal: Reports: No Symptoms Skin: Reports: No Symptoms Exam - Exam Exam: See Below - Vital Signs Vital Signs: Last Vital Signs Temp 98.0 F 11/22/20 07:30 Pulse 75 11/22/20 07:30 Resp 18 11/22/20 07:30 BP 117/67 11/22/20 07:30 Pulse Ox 98 11/22/20 07:30 Weight: 96.797 kg - Exam General: Alert, Oriented, Cooperative Lungs: Clear to Auscultation, Normal Respiratory Effort Cardiovascular: Regular Rate, Regular Rhythm, Normal S1, Normal S2 GI/Abdominal Exam: Soft, No Distention, No Abnormal Bruit, No Mass, Tender (RUQ) - Patient Data Lab Results Last 24 hrs: Laboratory Results - last 24 hr 11/21/20 11/21/20 11/21/20 Range/Units 19:55 19:55 20:40 WBC 11.61 H (3.98-10.04) K/mm3 RBC 4.37 (3.98-5.22) M/mm3 Hgb 12.5 (11.2-15.7) gm/dl Hct 39.2 (34.1-44.9) % MCV 89.7 (79.4-94.8) fl MCH 28.6 (25.6-32.2) pg MCHC 31.9 L (32.2-35.5) g/dl RDW Std Deviation 44.7 (36.4-46.3) fL Plt Count 265 (182-369) K/mm3 MPV 9.2 L (9.4-12.3) fl Neut % (Auto) 76.6 H (34.0-71.1) % Lymph % (Auto) 15.7 L (19.3-51.7) % [place] % (Auto) 4.7 (4.7-12.5) % Eos % (Auto) 2.5 (0.7-5.8) Baso % (Auto) 0.3 (0.1-1.2) % Neut # (Auto) 8.90 H (1.56-6.13) K/mm3 Lymph # (Auto) 1.82 (1.18-3.74) K/mm3 [place] # (Auto) 0.55 H (0.24-0.36) K/mm3 Eos # (Auto) 0.29 (0.04-0.36) K/mm3 Baso # (Auto) 0.03 (0.01-0.08) K/mm3 Manual Slide Review Normal smear Sodium (136-145) mEq/L Potassium (3.5-5.1) mEq/L Chloride (98-107) mEq/L Carbon Dioxide (21-32) mEq/L Anion Gap (5-15) BUN (7-18) mg/dL Creatinine (0.55-1.02) mg/dL Est Cr Clr Drug Dosing mL/min Estimated GFR (MDRD) (>60) mL/min BUN/Creatinine Ratio (14-18) Glucose (74-106) mg/dL Calcium (8.5-10.1) mg/dL Total Bilirubin (0.2-1.0) mg/dL GGT (5-55) U/L AST (15-37) U/L ALT (14-59) U/L Alkaline Phosphatase (46-116) U/L C-Reactive Protein (<1.0) mg/dL Total Protein (6.4-8.2) g/dl Albumin (3.4-5.0) g/dl Globulin gm/dL Albumin/Globulin Ratio (1-2) Lipase (73-393) U/L Urine Color Yellow (Yellow) Urine Appearance Clear (Clear) Urine pH 6.0 (5.0-8.0) Ur Specific [place] > or = 1.030 (1.005-1.030) Urine Protein 1+ H (Negative) Urine Glucose (UA) Negative (Negative) Urine Ketones Negative (Negative) Urine Occult Blood 2+ H (Negative) Urine Nitrite Negative (Negative) Urine Bilirubin Negative (Negative) Urine Urobilinogen 0.2 (0.2-1.0) Ur Leukocyte Esterase Negative (Negative) Urine RBC 0-5 (0-5) /hpf Urine WBC 0-5 (0-5) /hpf Ur Squamous Epith Cells 5-10 H (0-5) /hpf Urine Bacteria Few (FEW) /hpf Urine Mucus Moderate H (FEW) /hpf Urine HCG, Qual Negative (NEGATIVE) Influenza Type A RNA (NEGATIVE) Influenza Type B RNA (NEGATIVE) SARS-CoV-2 RNA (SHEMAR) (NEGATIVE) 11/21/20 11/21/20 11/22/20 Range/Units 20:40 20:40 00:06 WBC (3.98-10.04) K/mm3 RBC (3.98-5.22) M/mm3 Hgb (11.2-15.7) gm/dl Hct (34.1-44.9) % MCV (79.4-94.8) fl MCH (25.6-32.2) pg MCHC (32.2-35.5) g/dl RDW Std Deviation (36.4-46.3) fL Plt Count (182-369) K/mm3 MPV (9.4-12.3) fl Neut % (Auto) (34.0-71.1) % Lymph % (Auto) (19.3-51.7) % [place] % (Auto) (4.7-12.5) % Eos % (Auto) (0.7-5.8) Baso % (Auto) (0.1-1.2) % Neut # (Auto) (1.56-6.13) K/mm3 Lymph # (Auto) (1.18-3.74) K/mm3 [place] # (Auto) (0.24-0.36) K/mm3 Eos # (Auto) (0.04-0.36) K/mm3 Baso # (Auto) (0.01-0.08) K/mm3 Manual Slide Review Sodium 142 (136-145) mEq/L Potassium 3.9 (3.5-5.1) mEq/L Chloride 105 (98-107) mEq/L Carbon Dioxide 25 (21-32) mEq/L Anion Gap 15.9 H (5-15) BUN 14 (7-18) mg/dL Creatinine 0.9 (0.55-1.02) mg/dL Est Cr Clr Drug Dosing 65.06 mL/min Estimated GFR (MDRD) > 60 (>60) mL/min BUN/Creatinine Ratio 15.6 (14-18) Glucose 109 H (74-106) mg/dL Calcium 8.9 (8.5-10.1) mg/dL Total Bilirubin 0.2 (0.2-1.0) mg/dL GGT 32 (5-55) U/L AST 15 (15-37) U/L ALT 27 (14-59) U/L Alkaline Phosphatase 91 (46-116) U/L C-Reactive Protein 1.4 H* (<1.0) mg/dL Total Protein 7.6 (6.4-8.2) g/dl Albumin 3.6 (3.4-5.0) g/dl Globulin 4.0 gm/dL Albumin/Globulin Ratio 0.9 L (1-2) Lipase 143 (73-393) U/L Urine Color (Yellow) Urine Appearance (Clear) Urine pH (5.0-8.0) Ur Specific [place] (1.005-1.030) Urine Protein (Negative) Urine Glucose (UA) (Negative) Urine Ketones (Negative) Urine Occult Blood (Negative) Urine Nitrite (Negative) Urine Bilirubin (Negative) Urine Urobilinogen (0.2-1.0) Ur Leukocyte Esterase (Negative) Urine RBC (0-5) /hpf Urine WBC (0-5) /hpf Ur Squamous Epith Cells (0-5) /hpf Urine Bacteria (FEW) /hpf Urine Mucus (FEW) /hpf Urine HCG, Qual (NEGATIVE) Influenza Type A RNA Negative (NEGATIVE) Influenza Type B RNA Negative (NEGATIVE) SARS-CoV-2 RNA (SHEMAR) Negative (NEGATIVE) Result Diagrams: 11/21/20 20:40 11/21/20 20:40 Sepsis Event Note - Evaluation Sepsis Screening Result: No Definite Risk - Focused Exam Vital Signs: Vital Signs Temp Temp Pulse Pulse Resp BP BP 11/22/20 07:30 98.0 F 75 18 117/67 11/22/20 06:01 97.9 F 75 14 115/61 11/22/20 02:03 97.5 F 73 15 110/64 11/21/20 19:59 96.9 F 80 20 140/93 H Pulse Ox 11/22/20 07:30 98 11/22/20 06:01 98 11/22/20 02:03 95 11/21/20 19:59 100 Problem List Initiated/Reviewed/Updated: No Orders Last 24hrs: Active Orders 24 hr Category Date Time Status Admission Status [Patient Status] [ADT] Routine ADT 11/21/20 23:00 Active Nothing per Oral After Midnight Diet [DIET] Diet 11/22/20 Breakfast Active Abdomen Pelvis w Cont [CT] Stat Exams 11/21/20 20:27 Taken Lactated Ringers [Ringers, Lactated] 1,000 ml Med 11/21/20 23:00 Active IV ASDIRECTED Metoclopramide [Reglan] Med 11/21/20 23:00 Active 10 mg IVPUSH Q4H PRN Ondansetron [Zofran] Med 11/21/20 23:00 Active 4 mg IVPUSH Q8H PRN Sodium Chloride 0.9% [Normal Saline] 1,000 ml Med 11/21/20 20:15 Active IV ASDIRECTED fentaNYL [Sublimaze] Med 11/21/20 23:00 Active 50 mcg IVPUSH Q4H PRN Schedule Procedure [COMM] Timed Oth 11/22/20 08:00 Ordered Medication Orders Fentanyl (Sublimaze) 50 mcg IVPUSH Q4H PRN PRN Reason: Pain Last Admin: 11/22/20 03:05 Dose: 50 mcg Documented by: EDGARRTLEWIS Sodium Chloride (Normal Saline) 1,000 mls @ 150 mls/hr IV ASDIRECTED [facility] Last Admin: 11/21/20 20:21 Dose: 150 mls/hr Documented by: AMBROSIO Lactated Ringer's (Ringers, Lactated) 1,000 mls @ 150 mls/hr IV ASDIRECTED [facility] Last Admin: 11/22/20 02:00 Dose: 150 mls/hr Documented by: EDGARRTAM Metoclopramide HCl (Reglan) 10 mg IVPUSH Q4H PRN PRN Reason: Nausea Ondansetron HCl (Zofran) 4 mg IVPUSH Q8H PRN PRN Reason: Nausea Assessment/Plan Comment:: Patient has symptoms suggestive of acute cholecystitis. WBC and CRP are elevated, pain in the RUQ, cholelithiasis and gall bladder wall thickening. I recommended cholecystectomy. We discussed lap cholecystectomy, possible open. Risks, benefits and alternatives were discussed. Specific risks discussed included injury to adjacent structures, bleeding, infection, need for further interventions, leakage. Questions were answered and informed consent signed. We will proceed with surgery today.
[2020-11-22] MEDS ORDERED: ceFAZolin 1 GM Vial ONE (07:57)
[2020-11-22] MEDS ORDERED: HYDROmorphone 0.5 MG/0.5 ML Syringe ONE ×2 (08:03)
[2020-11-22] MEDS ORDERED: fentaNYL 100 MCG/2 ML SDV ONE ×2 (08:16→08:27)
[2020-11-22] MEDS ORDERED: Lactated Ringers 1,000 ML ONE (09:28)
[2020-11-22] MEDS ORDERED: fentaNYL 100 MCG/2 ML SDV IVPUSH PRN (09:55)
--- NOTE | 2020-11-22 09:56 | PCM.POSTAN ---
POST ANESTHESIA ASSESSMENT - MENTAL STATUS Mental Status: Alert, Oriented - VITAL SIGNS Vital Signs: Last Vital Signs Temp 36.7 C 11/22/20 07:30 Pulse 75 11/22/20 07:30 Resp 18 11/22/20 07:30 BP 117/67 11/22/20 07:30 Pulse Ox 98 11/22/20 07:30 - RESPIRATORY Respiratory Status: Respiratory Rate WNL, Airway Patent, O2 Saturation Stable - CARDIOVASCULAR CV Status: Pulse Rate WNL, Blood Pressure Stable - GASTROINTESTINAL GI Status: No Symptoms - PAIN Pain Score: 0 - POST OP HYDRATION Hydration Status: Adequate & Stable - OBSERVATIONS Free Text/Narrative:: no anesthesia complications noted
--- NOTE | 2020-11-22 09:56 | CT ---
CT abdomen and pelvis Technique: Multiple axial sections were obtained from above the dome of the diaphragm inferiorly through the pubic symphysis. Intravenous and oral contrast was utilized. Delayed images were also obtained through the bladder. Reconstructed coronal and sagittal images were obtained. Comparison: Prior CT abdomen and pelvis performed without contrast and dated 09/16/16. Findings: Visualized lung bases shows nothing acute. Liver shows no focal abnormality. Small amount of contrast is noted within the distal esophagus. There is a small amount of wall thickening also being seen within the distal esophagus raising the possibility of reflux change. Spleen size is normal. Small amount of normal accessory splenic tissue is noted medially. Adrenal gland on the right side shows minimal nodule measuring 4 mm which is most likely incidental. Pancreas shows no discrete abnormality. Multiple gallstones are seen within the gallbladder. Kidneys show symmetric contrast enhancement. Right kidney shows a cyst within the mid region measuring about 1.5 cm. Abdominal aorta shows no aneurysm. No retroperitoneal adenopathy or mesenteric abnormalities are seen. IUD is present within the endometrial cavity of the uterus. Appendix is not visualized. Bladder shows contrast on delayed images. Contrast is also noted within the ureters which shows no ureteral dilatation. Bone window setting shows slight spondylolytic defects at L5-S1 and disc space narrowing at L5-S1 with spondylolisthesis measuring 6 mm. Minimal other scattered degenerative change is seen within the spine. No acute osseous finding is seen. Impression: 1. Gallstones. 2. Possible mild gastroesophageal reflux disease. 3. Other findings which are felt to be stable from previous study. Diagnostic code #3 I agree with preliminary report from 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
--- NOTE | 2020-11-22 09:57 | PCM.PREANE ---
Preanesthetic Assessment - Anesthesia/Transfusion/Family Hx Anesthesia History: Prior Anesthesia Without Reaction Family History of Anesthesia Reaction: No Transfusion History: No Prior Transfusion(s) - Review of Systems General: No Symptoms Pulmonary: No Symptoms Cardiovascular: No Symptoms Gastrointestinal: Abdominal Pain Neurological: No Symptoms Other: Reports: None - Physical Assessment NPO Status Date: 11/21/20 NPO Status Time: 00:00 Vital Signs: Last Vital Signs Temp 36.7 C 11/22/20 07:30 Pulse 75 11/22/20 07:30 Resp 18 11/22/20 07:30 BP 117/67 11/22/20 07:30 Pulse Ox 98 11/22/20 07:30 Height: 1.57 m Weight: 96.797 kg ASA Class: 2 Mental Status: Alert & Oriented x3 Airway Class: Mallampati = 2 Dentition: Reports: Normal Dentition Thyro-Mental Finger Breadths: 3 Mouth Opening Finger Breadths: 2 ROM/Head Extension: Full Lungs: Clear to Auscultation, Normal Respiratory Effort Cardiovascular: Regular Rate, Regular Rhythm - Lab Values: Laboratory Last Values WBC 11.61 K/mm3 (3.98-10.04) H 11/21/20 20:40 RBC 4.37 M/mm3 (3.98-5.22) 11/21/20 20:40 Hgb 12.5 gm/dl (11.2-15.7) 11/21/20 20:40 Hct 39.2 % (34.1-44.9) 11/21/20 20:40 MCV 89.7 fl (79.4-94.8) 11/21/20 20:40 MCH 28.6 pg (25.6-32.2) 11/21/20 20:40 MCHC 31.9 g/dl (32.2-35.5) L 11/21/20 20:40 RDW Std Deviation 44.7 fL (36.4-46.3) 11/21/20 20:40 Plt Count 265 K/mm3 (182-369) 11/21/20 20:40 MPV 9.2 fl (9.4-12.3) L 11/21/20 20:40 Neut % (Auto) 76.6 % (34.0-71.1) H 11/21/20 20:40 Lymph % (Auto) 15.7 % (19.3-51.7) L 11/21/20 20:40 [place] % (Auto) 4.7 % (4.7-12.5) 11/21/20 20:40 Eos % (Auto) 2.5 (0.7-5.8) 11/21/20 20:40 Baso % (Auto) 0.3 % (0.1-1.2) 11/21/20 20:40 Neut # (Auto) 8.90 K/mm3 (1.56-6.13) H 11/21/20 20:40 Lymph # (Auto) 1.82 K/mm3 (1.18-3.74) 11/21/20 20:40 [place] # (Auto) 0.55 K/mm3 (0.24-0.36) H 11/21/20 20:40 Eos # (Auto) 0.29 K/mm3 (0.04-0.36) 11/21/20 20:40 Baso # (Auto) 0.03 K/mm3 (0.01-0.08) 11/21/20 20:40 Manual Slide Review Normal smear 11/21/20 20:40 Sodium 142 mEq/L (136-145) 11/21/20 20:40 Potassium 3.9 mEq/L (3.5-5.1) 11/21/20 20:40 Chloride 105 mEq/L (98-107) 11/21/20 20:40 Carbon Dioxide 25 mEq/L (21-32) 11/21/20 20:40 Anion Gap 15.9 (5-15) H 11/21/20 20:40 BUN 14 mg/dL (7-18) 11/21/20 20:40 Creatinine 0.9 mg/dL (0.55-1.02) 11/21/20 20:40 Est Cr Clr Drug Dosing 65.06 mL/min 11/21/20 20:40 Estimated GFR (MDRD) > 60 mL/min (>60) 11/21/20 20:40 BUN/Creatinine Ratio 15.6 (14-18) 11/21/20 20:40 Glucose 109 mg/dL (74-106) H 11/21/20 20:40 Calcium 8.9 mg/dL (8.5-10.1) 11/21/20 20:40 Total Bilirubin 0.2 mg/dL (0.2-1.0) 11/21/20 20:40 GGT 32 U/L (5-55) 11/21/20 20:40 AST 15 U/L (15-37) 11/21/20 20:40 ALT 27 U/L (14-59) 11/21/20 20:40 Alkaline Phosphatase 91 U/L (46-116) 11/21/20 20:40 C-Reactive Protein 1.4 mg/dL (<1.0) H* 11/21/20 20:40 Total Protein 7.6 g/dl (6.4-8.2) 11/21/20 20:40 Albumin 3.6 g/dl (3.4-5.0) 11/21/20 20:40 Globulin 4.0 gm/dL 11/21/20 20:40 Albumin/Globulin Ratio 0.9 (1-2) L 11/21/20 20:40 Lipase 143 U/L (73-393) 11/21/20 20:40 Urine Color Yellow (Yellow) 11/21/20 19:55 Urine Appearance Clear (Clear) 11/21/20 19:55 Urine pH 6.0 (5.0-8.0) 11/21/20 19:55 Ur Specific [place] > or = 1.030 (1.005-1.030) 11/21/20 19:55 Urine Protein 1+ (Negative) H 11/21/20 19:55 Urine Glucose (UA) Negative (Negative) 11/21/20 19:55 Urine Ketones Negative (Negative) 11/21/20 19:55 Urine Occult Blood 2+ (Negative) H 11/21/20 19:55 Urine Nitrite Negative (Negative) 11/21/20 19:55 Urine Bilirubin Negative (Negative) 11/21/20 19:55 Urine Urobilinogen 0.2 (0.2-1.0) 11/21/20 19:55 Ur Leukocyte Esterase Negative (Negative) 11/21/20 19:55 Urine RBC 0-5 /hpf (0-5) 11/21/20 19:55 Urine WBC 0-5 /hpf (0-5) 11/21/20 19:55 Ur Squamous Epith Cells 5-10 /hpf (0-5) H 11/21/20 19:55 Urine Bacteria Few /hpf (FEW) 11/21/20 19:55 Urine Mucus Moderate /hpf (FEW) H 11/21/20 19:55 Urine HCG, Qual Negative (NEGATIVE) 11/21/20 19:55 Influenza Type A RNA Negative (NEGATIVE) 11/22/20 00:06 Influenza Type B RNA Negative (NEGATIVE) 11/22/20 00:06 SARS-CoV-2 RNA (SHEMAR) Negative (NEGATIVE) 11/22/20 00:06 - Allergies Allergies/Adverse Reactions: Allergies Allergy/AdvReac Type Severity Reaction Status Date / Time No Known Allergies Allergy Verified 11/22/20 00:03 - Anesthesia Plan Pre-Op Medication Ordered: None - Acknowledgements Anesthesia Type Planned: General Anesthesia Pt an Appropriate Candidate for the Planned Anesthesia: Yes Alternatives and Risks of Anesthesia Discussed w Pt/Guardian: Yes Pt/Guardian Understands and Agrees with Anesthesia Plan: Yes PreAnesthesia Questionnaire Cardiovascular History: Reports: None Gastrointestinal History: Reports: GERD, Other (See Below) Genitourinary History: Reports: Other (See Below) CENA History: Reports: Neurological History: Reports: Migraines Other Neuro History: uses 2 aleve and quiet, dark room to rest. states no additional meds needed. - Past Surgical History Other Cardiovascular Surgeries/Procedures: hx preeclampsia with last GI Surgical History: Reports: Appendectomy Female Surgical History: Reports: Section - SUBSTANCE USE Tobacco Use Status *Q: Never Tobacco User Second Hand Smoke Exposure: No Recreational Drug Use History: No - HOME MEDS Home Medications: Home Meds Acetaminophen/oxyCODONE [Percocet 325-5 MG] 1 each PO Q6H 3 Days #12 tab 11/22/20 [Rx] Docusate Sodium [Colace] 100 mg PO Q12H 14 Days #28 capsule 11/22/20 [Rx] Multivitamin 1 tab PO DAILY 11/22/20 [History] - CURRENT (IN HOUSE) MEDS Current Meds: Current Medications Fentanyl (Sublimaze) 50 mcg IVPUSH Q4H PRN PRN Reason: Pain Last Admin: 11/22/20 03:05 Dose: 50 mcg Documented by: Fentanyl (Sublimaze) 50 mcg IVPUSH Q5M PRN PRN Reason: Pain Sodium Chloride (Normal Saline) 1,000 mls @ 150 mls/hr IV ASDIRECTED SARAH Last Admin: 11/21/20 20:21 Dose: 150 mls/hr Documented by: Lactated Ringer's (Ringers, Lactated) 1,000 mls @ 150 mls/hr IV ASDIRECTED [facility] Last Admin: 11/22/20 02:00 Dose: 150 mls/hr Documented by: Metoclopramide HCl (Reglan) 10 mg IVPUSH Q4H PRN PRN Reason: Nausea Ondansetron HCl (Zofran) 4 mg IVPUSH Q8H PRN PRN Reason: Nausea Discontinued Medications Bupivacaine HCl/Epinephrine Bitart (Marcaine 0.5%/Epinephrine 1:200,000) Confirm Administered Dose 50 ml .ROUTE .STK-MED ONE Stop: 11/22/20 07:16 Last Admin: 11/22/20 07:59 Dose: 30 ml Documented by: Cefazolin Sodium (Ancef) Confirm Administered Dose 2 gm .ROUTE .STK-MED ONE Stop: 11/22/20 07:58 Fentanyl (Sublimaze) 50 mcg IVPUSH ONETIME ONE Stop: 11/21/20 21:23 Last Admin: 11/21/20 21:50 Dose: 50 mcg Documented by: Fentanyl (Sublimaze) 50 mcg IVPUSH ONETIME ONE Stop: 11/21/20 22:08 Last Admin: 11/21/20 22:41 Dose: 50 mcg Documented by: Fentanyl (Sublimaze) Confirm Administered Dose 250 mcg .ROUTE .STK-MED ONE Stop: 11/22/20 07:11 Fentanyl (Sublimaze) Confirm Administered Dose 100 mcg .ROUTE .STK-MED ONE Stop: 11/22/20 08:17 Fentanyl (Sublimaze) Confirm Administered Dose 100 mcg .ROUTE .STK-MED ONE Stop: 11/22/20 08:28 Hydromorphone HCl (Dilaudid) 1 mg IVPUSH ONETIME ONE Stop: 11/21/20 20:32 Last Admin: 11/21/20 20:35 Dose: 1 mg Documented by: Hydromorphone HCl (Dilaudid) Confirm Administered Dose 0.5 mg .ROUTE .STK-MED ONE Stop: 11/22/20 08:04 Hydromorphone HCl (Dilaudid) Confirm Administered Dose 0.5 mg .ROUTE .STK-MED ONE Stop: 11/22/20 08:04 Ertapenem 1 gm/ Sodium (Chloride) 50 mls @ 100 mls/hr IV ONETIME ONE Stop: 11/21/20 23:46 Last Admin: 11/21/20 23:56 Dose: 100 mls/hr Documented by: Lidocaine HCl (Xylocaine-Mpf 1%) Confirm Administered Dose 4 mls @ as directed .ROUTE .STK-MED ONE Stop: 11/22/20 07:11 Lactated Ringer's (Ringers, Lactated) Confirm Administered Dose 1,000 mls @ as directed .ROUTE .STK-MED ONE Stop: 11/22/20 09:29 Ketorolac Tromethamine (Toradol) Confirm Administered Dose 30 mg .ROUTE .STK-MED ONE Stop: 11/22/20 07:11 Midazolam HCl (Versed 1 Mg/Ml) Confirm Administered Dose 2 mg .ROUTE .STK-MED ONE Stop: 11/22/20 07:11 Ondansetron HCl (Zofran) 4 mg IVPUSH ONETIME ONE Stop: 11/21/20 20:05 Last Admin: 11/21/20 20:21 Dose: 4 mg Documented by: Ondansetron HCl (Zofran) Confirm Administered Dose 4 mg .ROUTE .STK-MED ONE Stop: 11/22/20 07:10 Propofol (Diprivan 20 Ml) Confirm Administered Dose 200 mg .ROUTE .STK-MED ONE Stop: 11/22/20 07:10 Rocuronium [place] (Zemuron) Confirm Administered Dose 50 mg .ROUTE .STK-MED ONE Stop: 11/22/20 07:10 Rocuronium [place] (Zemuron) Confirm Administered Dose 50 mg .ROUTE .STK-MED ONE Stop: 11/22/20 08:37
--- NOTE | 2020-11-22 10:38 | OR ---
DATE OF OPERATION: 11/22/2020 SURGEON: Zehra Birmingham MD PREOPERATIVE DIAGNOSIS: Acute cholecystitis. POSTOPERATIVE DIAGNOSIS: Acute cholecystitis. OPERATION PERFORMED: Laparoscopic cholecystectomy. ESTIMATED BLOOD LOSS: 20 mL. ANESTHESIA: General endotracheal and local anesthetic consisting of 0.5% Marcaine with epinephrine. COMPLICATIONS: None. SPECIMEN: Gallbladder. NEED FOR ASSISTANCE: Skilled assistance was provided by our nurse practitioner, Adrienne Canas. She assisted with patient positioning, holding the camera during the procedure, and incision closure at the end of the procedure. INDICATIONS AND CONSENT: Ms. Moran is a 40-year-old female who presented to the emergency department last night due to severe right upper quadrant pain. The patient started having pain at a birthday alliance party. This was associated with 6 episodes of vomiting several hours after. Due to excessive vomiting and severe pain, the patient presents to the ED where white count was 11.6. CT scan was performed and it revealed mildly thickened gallbladder wall with cholelithiasis. Given the elevated white count, CT findings, and exam findings, this was concerning for acute cholecystitis. I did talk to the patient, confirmed the findings, and provided her with options. I recommended we pursue cholecystectomy. We discussed the details of the procedure, risks, and benefits as well. All questions were answered and informed consent was obtained. In the ED, the patient was given 1 g of Invanz and pain medication for comfort. Details. DESCRIPTION OF PROCEDURE: The patient was taken to the operating room, placed in supine position. The patient was padded appropriately. General endotracheal anesthesia was induced and then the patient was given Ancef as preoperative antibiotic and abdomen was prepped and draped in the usual sterile fashion. Formal time-out was performed prior to the start of the procedure. We began the procedure by infiltrating local anesthetic in the supraumbilical position. Incision was made at this site. The umbilical stalk was elevated, and a Veress needle was introduced into the abdomen and the abdomen was insufflated to 15 mmHg. Then, a 12 mm trocar was inserted under direct visualization with the laparoscope. The abdomen was entered, and upon quick inspection of the abdomen, there were no signs of obvious injury due to Veress needle or trocar insertion. Three other 5 mm trocars were placed, 1 in the subxiphoid area and 2 in the right subcostal area. Then we focused in the right upper quadrant where the gallbladder was. Gallbladder appeared to be distended. There was some adhesions from the omentum to the infundibulum as well as the gallbladder body. The gallbladder was grasped and elevated cranially. Adhesions of the omentum were taken down. There was significant amount of edema in the infundibulum and in the Calot triangle. Meticulously the cystic duct and cystic artery were skeletonized. We used sharp dissection using cautery as well as blunt dissection using the suction irrigation device. Once this was skeletonized, a critical view of safety was achieved, and both cystic duct and cystic artery were clipped with 3 clips and divided such that the 2 clips remained in situ. Then, the gallbladder was removed from the gallbladder fossa with cautery. Once again, there was significant amount of edema indicating acute inflammation in the gallbladder fossa. Once the gallbladder was removed, it was placed in the EndoCatch bag. There was small amount of inflammatory fluid throughout the abdomen, both in the right upper quadrant and in the pelvic area. Some of this was suctioned out. The gallbladder was removed intact. There was no spillage of gallbladder contents into the abdomen. It was placed in the EndoCatch bag and removed through the supraumbilical incision. This incision had to be extended slightly to accommodate the stone that was within the gallbladder. Once this was done, the abdomen was reinspected. There were no signs of injury or bleeding. Additional inflammatory fluid was suctioned out and we began the closure of the abdomen. The fascia at the supraumbilical site was closed using 0 Vicryl stitches with a Patric-Karoline device, and once this was done, the skin at all 4 sites was closed with 4-0 Monocryl. All instruments, sponges, and sharps were counted x2 and were correct both times. The procedure was concluded. Dermabond was applied on top of the closed incisions. The patient was extubated and taken to the PACU for further recovery. She will be allowed to return home after tolerating fluids. MMWILMER /[id number]
[2020-11-22 15:25] VITALS: BP 115/70; PULSE 85
--- NOTE | 2020-11-22 17:33 | PCM48HPAN ---
Post Anesthesia Note - EVALUATION WITHIN 48HRS OF ANESTHETIC Vital Signs in Normal Range: Yes Patient Participated in Evaluation: No (per RN) Respiratory Function Stable: Yes Airway Patent: Yes Cardiovascular Function Stable: Yes Hydration Status Stable: Yes Pain Control Satisfactory: Yes Nausea and Vomiting Control Satisfactory: Yes Mental Status Recovered: Yes Vital Signs: Last Vital Signs Temp 37.2 C 11/22/20 14:44 Pulse 85 11/22/20 14:44 Resp 18 11/22/20 14:44 BP 115/70 11/22/20 14:44 Pulse Ox 97 11/22/20 14:44
== END 2020-11-22 15:05 | disposition home or self-care (01) ==
LOC: JD.ED 19:36 → JD.MS 23:22 → JD.OB 23:23
PROVIDERS: ADMIT Surgery; ATTEND Surgery
DX: K80.12 Calculus of gallbladder with acute and chronic cholecystitis without obstruction (principal); Z01.812 Encounter for preprocedural laboratory examination; Z20.822 Contact with and (suspected) exposure to COVID-19
CPT/HCPCS: 0240U; 36415; 47562; 74177; 80053; 81001; 81025; 82977; 83690; 85025; 86140; 96361; 96365; 96372; 96375; 96376; 99285; G0378; J0690; J1170; J1335; J1885; J2250; J2405; J2704; J2765; J3010; J3490; J7030; J7120; 00790